=== PATIENT | female | born 1950 | race African-American/Black ===

== ENCOUNTER 2018-06-03 11:53 | Inpatient (IN) | payer OTHER ==
[~2018-06-03] VITALS: Ht 167.6 cm; Wt 65.8 kg
[2018-06-03 11:55] VITALS: Ht 167.6 cm; Wt 65.8 kg
[2018-06-03 12:50] LABS: PLATELET COUNT 200 x10^3mcL (130-400)
[2018-06-03 13:06] LABS: CALCIUM 8.7 mg/dL (8.5-10.1); POTASSIUM SERUM 4.1 mmol/L (3.5-5.1)
[2018-06-03 13:11] LABS: RED CELL DISTRIBUTION WIDTH 15.2 % (11.5-14.5)
[2018-06-03 13:18] LABS: BILIRUBIN TOTAL 0.29 mg/dL (0.20-1.00)
[2018-06-03 13:19] LABS: ALBUMIN 2.8 g/dL (3.4-5.0); TOTAL PROTEIN, SERUM 5.9 g/dL (6.4-8.2)
[2018-06-03 14:47] LABS: BAND NEUTROPHIL 7 % (0-10); METAMYELOCTE 2 % (0-2); MONOCYTE 1 % (0-7); MYELOCYTE 2 % (0-2); SEGMENTED NEUTROPHILS 76 % (37-75)
[2018-06-03 14:48] LABS: burr cell (echinocyte) 1+; rbc morphology (normal/abnorm) ABNORMAL (NORMAL)
[2018-06-03 14:49] LABS: PLATELET MORPHOLOGY PLATELETS NORMAL
[2018-06-03 16:07] LABS: CK-MB < 0.5 ng/mL (0-3.6); CREATINE KINASE 66 U/L (26-192)
[2018-06-03 16:15] LABS: UA SPECIFIC GRAVITY <=1.005 (1.005-1.035); microscopic required? YES; urine erythrocyte TRACE (NEGATIVE)
[2018-06-03 16:44] LABS: AMPHETAMINE QUAL UR NONE DETECTED (See below)
[2018-06-03] MEDS ORDERED: DULCOLAX5 M1 PO (17:06)
[2018-06-03] MEDS ORDERED: BACLOFEN10 MG (17:07)
[2018-06-03] MEDS ORDERED: ARICEPT5 MG (17:07)
[2018-06-03] MEDS ORDERED: COLACE100 MG PO (17:08)
[2018-06-03] MEDS ORDERED: NOR10T PO (17:08)
[2018-06-03] MEDS ORDERED: ZOF4 PO (17:08)
[2018-06-03] MEDS ORDERED: BREO ELLIPTA1 POW IH (17:09)
[2018-06-03] MEDS ORDERED: ALBUTEROL0.63 MG/3 (17:09)
[2018-06-03] MEDS ORDERED: ATORVASTATIN CA40 M1 PO (17:09)
[2018-06-03] MEDS ORDERED: CARDIZEM CD180 MG PO (17:10)
[2018-06-03] MEDS ORDERED: FAMOTIDINE40 MG PO (17:10)
[2018-06-03] MEDS ORDERED: PLA75 PO (17:10)
[2018-06-03] MEDS ORDERED: NEU300 PO (17:11)
[2018-06-03] MEDS ORDERED: AMITIZA24 MC1 PO (17:11)
[2018-06-03] MEDS ORDERED: IMD60 PO (17:11)
[2018-06-03] MEDS ORDERED: METOPROLOL SUCC50 M2 PO (17:11)
[2018-06-03] MEDS ORDERED: PREDNISONE20 MG PO (17:12)
[2018-06-03] MEDS ORDERED: ALDACTONE25 MG PO (17:12)
[2018-06-03] MEDS ORDERED: KLOR-CON M2020 MEQ PO (17:12)
[2018-06-03] MEDS ORDERED: ASPIR 8181 MG PO (17:12)
[2018-06-03] MEDS ORDERED: TUDORZA PR400 MCG/A1 IH (17:12)
[2018-06-03] MEDS ORDERED: ZANAFLEX CAPSULE4 MG PO (17:13)
[2018-06-03] MEDS ORDERED: NITROGLYCERIN0.4 MG SL (17:14)
[2018-06-03] MEDS ORDERED: AMBIEN5 MG PO (17:14)
[2018-06-03] MEDS ORDERED: ATIVAN0.5 M1 PO (17:14)
[2018-06-03 20:29] VITALS: BP 128/69
[2018-06-03 21:00] VITALS: BP 133/76
[2018-06-04 05:11] VITALS: BP 106/55
[2018-06-04 06:45] LABS: BASOPHIL % 0.3 % (0-2); PLATELET COUNT 254 x10^3mcL (130-400)
[2018-06-04 07:04] LABS: CALCIUM 8.7 mg/dL (8.5-10.1); CARBON DIOXIDE 26.9 mmol/L (21-32); CHLORIDE SERUM 101 mmol/L (98-107); CREATININE SERUM 0.7 mg/dL (0.6-1.0); GFR1 > 60 mL/min; GLUCOSE SERUM 67 mg/dL (74-106); POTASSIUM SERUM 3.7 mmol/L (3.5-5.1); SODIUM SERUM 135 mmol/L (136-145)
[2018-06-04 07:13] LABS: RED CELL DISTRIBUTION WIDTH 15.3 % (11.5-14.5)
[2018-06-04 08:50] VITALS: BP 118/63
[2018-06-04 14:09] VITALS: BP 114/62
[2018-06-04 17:25] VITALS: BP 100/55
[2018-06-04 17:59] VITALS: BP 109/60
[2018-06-04 21:44] VITALS: BP 122/75
[2018-06-05 05:07] VITALS: BP 121/66
[2018-06-05 06:57] LABS: BASOPHIL % 0.3 % (0-2); PLATELET COUNT 237 x10^3mcL (130-400)
[2018-06-05 07:02] LABS: RED CELL DISTRIBUTION WIDTH 15.5 % (11.5-14.5)
[2018-06-05 07:03] LABS: CALCIUM 7.5 mg/dL (8.5-10.1); CARBON DIOXIDE 26.8 mmol/L (21-32); CHLORIDE SERUM 104 mmol/L (98-107); CREATININE SERUM 0.6 mg/dL (0.6-1.0); GFR1 > 60 mL/min; GLUCOSE SERUM 71 mg/dL (74-106); MAGNESIUM 1.7 mg/dL (1.8-2.4); PHOSPHOROUS 3.3 mg/dL (2.5-4.9); POTASSIUM SERUM 3.3 mmol/L (3.5-5.1); SODIUM SERUM 137 mmol/L (136-145)
[2018-06-05 08:26] VITALS: BP 123/75
[2018-06-05 13:51] VITALS: BP 110/65
[2018-06-05 17:42] VITALS: BP 102/62
[2018-06-05 20:52] VITALS: BP 100/57
[2018-06-06 05:44] VITALS: BP 111/63
[2018-06-06 06:57] LABS: BASOPHIL % 0.4 % (0-2); PLATELET COUNT 241 x10^3mcL (130-400)
[2018-06-06 07:05] LABS: RED CELL DISTRIBUTION WIDTH 15.5 % (11.5-14.5)
[2018-06-06 07:19] LABS: CALCIUM 8.6 mg/dL (8.5-10.1); CARBON DIOXIDE 21.9 mmol/L (21-32); CHLORIDE SERUM 105 mmol/L (98-107); CREATININE SERUM 0.8 mg/dL (0.6-1.0); GFR1 > 60 mL/min; GLUCOSE SERUM 128 mg/dL (74-106); POTASSIUM SERUM 3.3 mmol/L (3.5-5.1); SODIUM SERUM 137 mmol/L (136-145)
[2018-06-06 09:08] VITALS: BP 102/66
[2018-06-06 13:22] VITALS: BP 121/71
[2018-06-06 15:03] VITALS: BP 121/71
[2018-06-06 17:25] VITALS: BP 130/69
== END 2018-06-06 19:51 | DRG 871 ==
LOC: ED 11:53 → DU 17:00
PROVIDERS: Emergency Medicine; Family Medicine; Internal Medicine
DX: A41.9 Sepsis, unspecified organism (principal); G93.41 Metabolic encephalopathy; E87.2 Acidosis; E44.0 Moderate protein-calorie malnutrition; E87.1 Hypo-osmolality and hyponatremia; N39.0 Urinary tract infection, site not specified; J90 Pleural effusion, not elsewhere classified; F33.2 Major depressive disorder, recurrent severe without psychotic features; E11.65 Type 2 diabetes mellitus with hyperglycemia; K56.41 Fecal impaction; E86.0 Dehydration; J44.9 Chronic obstructive pulmonary disease, unspecified; E78.5 Hyperlipidemia, unspecified; I10 Essential (primary) hypertension; I25.10 Atherosclerotic heart disease of native coronary artery without angina pectoris; M51.26 Other intervertebral disc displacement, lumbar region; I25.2 Old myocardial infarction; Z68.24 Body mass index [BMI] 24.0-24.9, adult; Z87.891 Personal history of nicotine dependence; Z95.1 Presence of aortocoronary bypass graft
CPT/HCPCS: 82962; 83880; 97110-GP; 97116-GP; 97530-GP; 97535-GP; C9113; J0696; J1642; J1650; J2310; J2405; J7030; J7512; Q0092